=== PATIENT | male | born 1950 | race Hispanic/Latino ===

== ENCOUNTER 2022-02-23 21:44 | Inpatient (IN) | payer SELFPAY ==
[2022-02-23 22:16] LABS: #Eosinphils 0.1 thou/uL (0.0-0.7); #Lymphocytes 1.3 thou/uL (1.20-3.40); #Monocytes 0.7 thou/uL (0.11-0.59); #Neutrophils 6.2 thou/uL (1.40-6.50); %Basophils 0.5 % (0.0-1.0); %Eosinophils 1.5 % (0.0-10.0); %Lymphocytes 15.9 % (21.0-51.0); %Monocytes 8.8 % (0.0-10.0); %Neutrophils 73.3 % (42.0-75.0); Hemoglobin 13.5 g/dL (14.0-18.0); Mean Corpuscular HGB CONC 34.3 g/dL (32.0-36.0); Mean Corpuscular Volume 93.4 fL (78.0-98.0); Mean Platelet Volume 8.2 fL (7.4-10.4); Platelet Count 199 thou/uL (130-400); RBC Distribution Width 11.6 % (11.5-14.5); Red Blood Cell (RBC) Count 4.23 mill/uL (4.70-6.10); White Blood Cell (WBC) Count 8.5 thou/uL (4.8-10.8)
[2022-02-23 22:35] LABS: Anion Gap 14 mmol/L (10-20); BUN (Urea Nitrogen) 12 mg/dL (8.4-25.7); Calc. Creatinine Clearance 0 mL/min (70-130); Carbon Dioxide 23 mmol/L (23-31); Chloride 99 mmol/L (98-107); Estimated GFR 73; Glucose 440 mg/dL (80-115); Potassium 4.2 mmol/L (3.5-5.1); Sodium 132 mmol/L (136-145)
[2022-02-24] MEDS ORDERED: Cefepime 1 GM VIAL ONE (01:22)
[2022-02-24 02:10] VITALS: BMI 24.8
[2022-02-24] MEDS ORDERED: Vancomycin 1 GM/200 ML BAG ONE (02:40)
[2022-02-24] MEDS ORDERED: Ondansetron ODT 4 MG TAB PO PRN (04:48)
[2022-02-24] MEDS ORDERED: Acetaminophen 650 MG Suppository PR PRN (04:48)
[2022-02-24] MEDS ORDERED: Acetaminophen 325 MG TAB PO PRN (04:48)
[2022-02-24] MEDS ORDERED: Dextrose 50% Abboject 50 ML SYRINGE SLOW IVP PRN (04:48)
[2022-02-24] MEDS ORDERED: Dextrose 5% in Water 1,000 ML IV PRN (04:48)
[2022-02-24] MEDS ORDERED: Ondansetron PF 4 MG/2 ML Vial IVP PRN (04:48)
[2022-02-24 05:42] LABS: #Eosinphils 0.2 thou/uL (0.0-0.7); #Lymphocytes 1.6 thou/uL (1.20-3.40); #Monocytes 0.7 thou/uL (0.11-0.59); #Neutrophils 4.4 thou/uL (1.40-6.50); %Basophils 0.4 % (0.0-1.0); %Eosinophils 2.8 % (0.0-10.0); %Monocytes 10.2 % (0.0-10.0); %Neutrophils 63.5 % (42.0-75.0); Hemoglobin 12.9 g/dL (14.0-18.0); Mean Corpuscular HGB CONC 34.5 g/dL (32.0-36.0); Mean Corpuscular Hemoglobin 32.6 pg (27.0-31.0); Mean Corpuscular Volume 94.6 fL (78.0-98.0); Mean Platelet Volume 8.4 fL (7.4-10.4); Platelet Count 186 thou/uL (130-400); RBC Distribution Width 11.7 % (11.5-14.5); Red Blood Cell (RBC) Count 3.95 mill/uL (4.70-6.10); White Blood Cell (WBC) Count 6.9 thou/uL (4.8-10.8)
[2022-02-24] MEDS ORDERED: Piperacillin/Tazobactam 3.375 GM in Sodium Chloride 0.9% 100 ML IVPB SCH (06:00)
[2022-02-24 06:01] LABS: Anion Gap 14 mmol/L (10-20); BUN (Urea Nitrogen) 11 mg/dL (8.4-25.7); Calc. Creatinine Clearance 90 mL/min (70-130); Calcium 8.8 mg/dL (7.8-10.44); Carbon Dioxide 23 mmol/L (23-31); Chloride 102 mmol/L (98-107); Estimated GFR 96; Glucose 265 mg/dL (80-115); Potassium 3.7 mmol/L (3.5-5.1); Sodium 135 mmol/L (136-145)
[2022-02-24 07:05] LABS: SARS-CoV-2 NAA Rapid Test Not Detected (NotDetected)
[2022-02-24] MEDS ORDERED: Piperacillin/Tazobactam 3.375 GM VIAL ONE (07:47)
[2022-02-24] MEDS ORDERED: Aspirin 81 mg Enteric Coated Tablet ONE (07:47)
[2022-02-24] MEDS: Aspirin 81 mg Enteric Coated Tablet PO SCH (07:57)
[2022-02-24] MEDS ORDERED: HumaLOG 300 UNITS/3 ML VIAL ONE (08:25)
[2022-02-24] MEDS: HumaLOG 300 UNITS/3 ML VIAL SC PRN ×2 (08:34→20:47)
[2022-02-24] MEDS: Piperacillin/Tazobactam 3.375 GM in Sodium Chloride 0.9% 100 ML IVPB SCH ×2 (10:00→18:13)
[2022-02-24] MEDS ORDERED: Magnevist 469MG/ML 20 ML VIAL ONE (12:09)
[2022-02-25] MEDS: Piperacillin/Tazobactam 3.375 GM in Sodium Chloride 0.9% 100 ML IVPB SCH ×3 (01:45→18:02)
[2022-02-25] MEDS: HumaLOG 300 UNITS/3 ML VIAL SC PRN ×2 (05:53→20:49)
[2022-02-25 06:33] LABS: #Eosinphils 0.3 thou/uL (0.0-0.7); #Lymphocytes 2.4 thou/uL (1.20-3.40); #Monocytes 0.6 thou/uL (0.11-0.59); %Basophils 0.5 % (0.0-1.0); %Eosinophils 4.7 % (0.0-10.0); %Lymphocytes 32.4 % (21.0-51.0); %Monocytes 8.3 % (0.0-10.0); %Neutrophils 54.1 % (42.0-75.0); Hemoglobin 13.6 g/dL (14.0-18.0); Mean Corpuscular HGB CONC 32.5 g/dL (32.0-36.0); Mean Corpuscular Hemoglobin 30.8 pg (27.0-31.0); Mean Corpuscular Volume 94.8 fL (78.0-98.0); Mean Platelet Volume 8.2 fL (7.4-10.4); Platelet Count 201 thou/uL (130-400); RBC Distribution Width 11.9 % (11.5-14.5); Red Blood Cell (RBC) Count 4.41 mill/uL (4.70-6.10); White Blood Cell (WBC) Count 7.3 thou/uL (4.8-10.8)
[2022-02-25 06:57] LABS: Anion Gap 12 mmol/L (10-20); BUN (Urea Nitrogen) 17 mg/dL (8.4-25.7); Calc. Creatinine Clearance 80 mL/min (70-130); Calcium 9.3 mg/dL (7.8-10.44); Carbon Dioxide 24 mmol/L (23-31); Chloride 104 mmol/L (98-107); Estimated GFR 93; Glucose 253 mg/dL (80-115); Potassium 4.2 mmol/L (3.5-5.1); Sodium 136 mmol/L (136-145)
[2022-02-25] MEDS: Aspirin 81 mg Enteric Coated Tablet PO SCH (08:54)
[2022-02-25] MEDS ORDERED: Ondansetron HCl/PF 4 MG/2 ML Vial IVP PRN (12:26)
[2022-02-25] MEDS ORDERED: Promethazine HCl 25 MG/ML VIAL IVPB PRN (12:26)
[2022-02-25] MEDS ORDERED: Promethazine HCl 25 MG/ML VIAL IM PRN (12:26)
[2022-02-25] MEDS ORDERED: fentaNYL Citrate/PF 100 MCG/2 ML SYRINGE ONE (12:38)
[2022-02-25] MEDS ORDERED: Lidocaine 1% PF 5 ML VIAL ONE (12:53)
[2022-02-25] MEDS ORDERED: PROPOFOL 200 MG/20 ML VIAL ONE (12:53)
[2022-02-25] MEDS ORDERED: Ondansetron PF 4 MG/2 ML Vial ONE (12:53)
[2022-02-25] MEDS ORDERED: Acetaminophen 500 MG TAB PO PRN (12:55)
[2022-02-25] MEDS ORDERED: Acetaminophen 500 MG TAB PO SCH (13:00)
[2022-02-25] MEDS ORDERED: Fentanyl 100 MCG/2 ML VIAL ONE (13:53)
[2022-02-25] MEDS: traMADol HCl 50 MG TAB PO PRN ×2 (15:38→20:45)
[2022-02-25] MEDS ORDERED: Piperacillin/Tazobactam 3.375 GM VIAL ONE (16:55)
[2022-02-25] MEDS: metFORMIN 500 MG TAB PO SCH (17:04)
[2022-02-25] MEDS: Carvedilol 6.25 MG TAB PO SCH (20:42)
[2022-02-25] MEDS ORDERED: Simvastatin 10 MG TAB PO SCH (21:00)
[2022-02-26] MEDS: Piperacillin/Tazobactam 3.375 GM in Sodium Chloride 0.9% 100 ML IVPB SCH ×3 (02:19→17:36)
[2022-02-26] MEDS: HumaLOG 300 UNITS/3 ML VIAL SC PRN (06:19)
[2022-02-26 07:30] LABS: Anion Gap 12 mmol/L (10-20); BUN (Urea Nitrogen) 18 mg/dL (8.4-25.7); Calc. Creatinine Clearance 86 mL/min (70-130); Calcium 8.8 mg/dL (7.8-10.44); Carbon Dioxide 25 mmol/L (23-31); Chloride 104 mmol/L (98-107); Estimated GFR 95; Glucose 192 mg/dL (80-115); Potassium 4.1 mmol/L (3.5-5.1); Sodium 137 mmol/L (136-145)
[2022-02-26] MEDS ORDERED: glipiZIDE 5 MG TAB PO SCH (07:30)
[2022-02-26] MEDS: metFORMIN 500 MG TAB PO SCH ×2 (08:16→16:37)
[2022-02-26] MEDS: Aspirin 325 mg Enteric Coated Tablet PO SCH (08:16)
[2022-02-26] MEDS: Clopidogrel Bisulfate 75 MG TAB PO SCH (08:16)
[2022-02-26] MEDS: Lisinopril 2.5 MG TAB PO SCH (08:16)
[2022-02-26] MEDS: Carvedilol 6.25 MG TAB PO SCH ×2 (08:16→20:45)
[2022-02-26] MEDS ORDERED: Polyethylene Glycol 3350 17 GM Packet PO PRN (14:47)
[2022-02-26] MEDS: Simethicone Chewable 80 MG TAB PO PRN (16:36)
[2022-02-26] MEDS: glipiZIDE 5 MG TAB PO SCH (16:37)
[2022-02-26] MEDS: Simvastatin 10 MG TAB PO SCH (20:45)
[2022-02-26] MEDS: Senokot S 8.6-50 MG TAB PO SCH (20:45)
[2022-02-27] MEDS: Piperacillin/Tazobactam 3.375 GM in Sodium Chloride 0.9% 100 ML IVPB SCH ×3 (02:22→17:03)
[2022-02-27] MEDS: traMADol HCl 50 MG TAB PO PRN (02:22)
[2022-02-27 06:43] LABS: Anion Gap 12 mmol/L (10-20); BUN (Urea Nitrogen) 13 mg/dL (8.4-25.7); Calc. Creatinine Clearance 91 mL/min (70-130); Calcium 9.1 mg/dL (7.8-10.44); Carbon Dioxide 27 mmol/L (23-31); Chloride 104 mmol/L (98-107); Estimated GFR 97; Glucose 113 mg/dL (80-115); Potassium 3.7 mmol/L (3.5-5.1); Sodium 139 mmol/L (136-145)
[2022-02-27] MEDS: metFORMIN 500 MG TAB PO SCH ×2 (08:20→17:03)
[2022-02-27] MEDS: Senokot S 8.6-50 MG TAB PO SCH ×2 (08:20→21:40)
[2022-02-27] MEDS: glipiZIDE 5 MG TAB PO SCH ×2 (08:20→17:03)
[2022-02-27] MEDS: Simethicone Chewable 80 MG TAB PO PRN (08:21)
[2022-02-27] MEDS: Aspirin 325 mg Enteric Coated Tablet PO SCH (08:21)
[2022-02-27] MEDS: Carvedilol 6.25 MG TAB PO SCH ×2 (08:21→21:39)
[2022-02-27] MEDS: Lisinopril 2.5 MG TAB PO SCH (08:21)
[2022-02-27] MEDS: Clopidogrel Bisulfate 75 MG TAB PO SCH (08:21)
[2022-02-27] MEDS: Simvastatin 10 MG TAB PO SCH (21:39)
[2022-02-28] MEDS: Piperacillin/Tazobactam 3.375 GM in Sodium Chloride 0.9% 100 ML IVPB SCH ×2 (01:38→08:03)
[2022-02-28] MEDS: glipiZIDE 5 MG TAB PO SCH (08:02)
[2022-02-28] MEDS: Lisinopril 2.5 MG TAB PO SCH (08:02)
[2022-02-28] MEDS: Senokot S 8.6-50 MG TAB PO SCH (08:02)
[2022-02-28] MEDS: Clopidogrel Bisulfate 75 MG TAB PO SCH (08:02)
[2022-02-28] MEDS: Carvedilol 6.25 MG TAB PO SCH (08:02)
[2022-02-28] MEDS: metFORMIN 500 MG TAB PO SCH (08:02)
[2022-02-28] MEDS: Aspirin 325 mg Enteric Coated Tablet PO SCH (08:02)
[2022-02-28 08:03] VITALS: BP 164/77
[2022-02-28 08:40] VITALS: TEMP 97.7
== END 2022-02-28 14:56 | disposition home or self-care (01) | DRG 617 ==
LOC: ERS 21:44 → ERHOLD 02-24 01:27 → T4-B 02-24 11:23
PROVIDERS: ADMIT Student in an Organized Health Care Education/Training Program; ATTEND Family Medicine
PROC: 0Y6R0Z1 Detachment at Right 2nd Toe, High, Open Approach (ICD-10-PCS; principal; 2022-02-25)
DX: E11.69 Type 2 diabetes mellitus with other specified complication (principal); E87.1 Hypo-osmolality and hyponatremia; L03.115 Cellulitis of right lower limb; M86.171 Other acute osteomyelitis, right ankle and foot; E11.628 Type 2 diabetes mellitus with other skin complications; Z20.822 Contact with and (suspected) exposure to COVID-19; E11.65 Type 2 diabetes mellitus with hyperglycemia; I10 Essential (primary) hypertension; E78.00 Pure hypercholesterolemia, unspecified; F17.210 Nicotine dependence, cigarettes, uncomplicated; E11.40 Type 2 diabetes mellitus with diabetic neuropathy, unspecified; D64.9 Anemia, unspecified; I25.10 Atherosclerotic heart disease of native coronary artery without angina pectoris; Z79.82 Long term (current) use of aspirin; I25.2 Old myocardial infarction; Z79.84 Long term (current) use of oral hypoglycemic drugs; Z79.899 Other long term (current) drug therapy; Z79.4 Long term (current) use of insulin
CPT/HCPCS: 36415; 36416; 80048; 83605; 85025; 87040; 87070; 87077; 87205; 88305; 88311; 96374; 96375; 97139; A9579; J0692; J1815; J2405; J2543; J2704; J3010; J3370; J3490